=== PATIENT | male | born 1990 | race Caucasian/White ===

== ENCOUNTER 2017-05-05 17:26 | Emergency (ER) | payer MEDICAID ==
[2017-05-05 19:58] VITALS: BP 125/79
== END 2017-05-05 19:58 | disposition home or self-care (01) ==
LOC: ED 17:26
DX: S29.012A Strain of muscle and tendon of back wall of thorax, initial encounter (principal); M62.830 Muscle spasm of back; X58.XXXA Exposure to other specified factors, initial encounter; Y93.89 Activity, other specified; Y92.89 Other specified places as the place of occurrence of the external cause; Y99.8 Other external cause status